=== PATIENT | male | born 1980 | race Caucasian/White ===

== ENCOUNTER 2024-12-05 13:24 | Emergency (ER) | payer BC ==
[2024-12-05] MEDS ORDERED: Lidocaine 1% PF 5 ML VIAL ONE (13:42)
[2024-12-05] MEDS ORDERED: Boostrix 0.5 ML (Tdap) VIAL (>/=7 yrs of age) ONE (13:42)
[2024-12-05] MEDS ORDERED: Cephalexin 500 MG CAP ONE (14:35)
== END 2024-12-05 15:01 | disposition home or self-care (01) ==
LOC: MADERS 13:24
DX: S61.031A Puncture wound without foreign body of right thumb without damage to nail, initial encounter (principal); I10 Essential (primary) hypertension; R73.03 Prediabetes; E78.5 Hyperlipidemia, unspecified; Z79.899 Other long term (current) drug therapy; Z79.85 Long-term (current) use of injectable non-insulin antidiabetic drugs; F17.220 Nicotine dependence, chewing tobacco, uncomplicated; Z23 Encounter for immunization; W45.0XXA Nail entering through skin, initial encounter
CPT/HCPCS: 64450; 90471; 90715